=== PATIENT | female | born 1995 | race Caucasian/White ===

== ENCOUNTER 2018-09-01 10:44 | Emergency (ER) | payer SELFPAY ==
[~2018-09-01] VITALS: Ht 152.4 cm; Wt 82.0 kg
[2018-09-01 10:52] VITALS: BP 125/79; PULSE 84; RESP 18; Ht 152.4 cm; Wt 82.0 kg
[2018-09-01] MEDS ORDERED: ACETAMINOPHEN 325 MG TAB PO STA (12:20)
--- NOTE | 2018-09-01 12:53 | ERD ---
ER Documentation Chief Complaint Chief Complaint VAG BLEED , ONSET YESTERDAY HPI This is a 23-year-old female who presents to ED with complaints of vaginal bleeding times 2 days and passed a clot. Last menstrual period 08-30-18. Patient admits to some nausea and lower pelvic discomfort associated with the vaginal bleeding. Admits to history of irregular menses and states that she will often go for multiple months without having a period. Patient is sexually active with a male and is attempting to get . Patient has not taken a test. Denies vomiting, fever, chills, hemoptysis, hematemesis, diarrhea, c onstipation, melena, hematochezia, vaginal pain, vaginal discharge, dysuria, and all the symptoms. ROS All systems reviewed and are negative except as per history of present illness. Allergies Allergies: Coded Allergies: No Known Allergy (Unverified , 11/03/14) PMhx/Soc Hx Alcohol Use: No Hx Substance Use: No Hx Tobacco Use: No Smoking Status: Never smoker FmHx Family History: No diabetes Physical Exam Vitals Vital Signs Date Temp Pulse Resp B/P (MAP) Pulse Ox O2 O2 Flow FiO2 Time Delivery Rate 09/01/18 98.1 84 18 125/79 99 10:52 (94) Physical Exam Physical Exam Vitals signs: Reviewed by me. General: Well developed, well nourished, in no acute distress. Patient is awake and alert. Head: Normocephalic, atraumatic. Eyes: Normal conjunctiva, Pupils PERRLA, EOM intact grossly ENT: Pharynx is clear, Moist mucous membranes, external ears, nose and mouth normal Neck: Supple, no masses, lymphadenopathy or JVD Respiratory: Clear to auscultation bilaterally with no wheezing, rhonchi, rales, no distress Cardiovascular: RRR, no murmurs, rubs, or gallops Abdominal: Soft, nondistended, no peritoneal signs, no rigidity, no surgical abdomen, bowel sounds present all 4 quadrants, nontender light deep palpation all 4 quadrants, McBurney's point nontender, no rebound tenderness, no suprapubic tenderness : Deferred MSK: No edema, no unilateral swelling, 5/5 strength Back: No midline tenderness. No flank tenderness Neurologic: Alert and oriented, moving all extremities, normal speech, no focal weakness, no cerebellar signs. Normal mentation Skin: warm and dry, No rash Psych: Normal mood Result Diagram: 09/01/18 1235 09/01/18 1235 Results 24 hrs Laboratory Tests Test 09/01/18 12:35 09/01/18 12:40 09/01/18 12:50 White Blood Count 7.8 10^3/ul Red Blood Count 5.24 10^6/ul Hemoglobin 12.8 g/dl Hematocrit 40.7 % Mean Corpuscular Volume 77.7 fl Mean Corpuscular Hemoglobin 24.4 pg Mean Corpuscular 31.4 g/dl Hemoglobin Concent Red Cell Distribution Width 13.5 % Platelet Count 471 10^3/UL Mean Platelet Volume 9.7 fl Immature Granulocytes % 0.300 % Neutrophils % 58.9 % Lymphocytes % 34.9 % Monocytes % 4.6 % Eosinophils % 0.9 % Basophils % 0.4 % Nucleated Red Blood Cells % 0.0 /100WBC Immature Granulocytes # 0.020 10^3/ul Neutrophils # 4.6 10^3/ul Lymphocytes # 2.7 10^3/ul Monocytes # 0.4 10^3/ul Eosinophils # 0.1 10^3/ul Basophils # 0.0 10^3/ul Nucleated Red Blood Cells # 0.0 10^3/ul Prothrombin Time 13.0 Sec Prothrombin Time Ratio 1.0 INR International 0.97 Normalized Ratio Activated Partial Thromboplast 34.9 Sec Time Sodium Level 142 mmol/L Potassium Level 4.0 mmol/L Chloride Level 106 mmol/L Carbon Dioxide Level 29 mmol/L Anion Gap 7 Blood Urea Nitrogen 12 mg/dl Creatinine 0.50 mg/dl Est Glomerular Filtrat > 60 mL/min Rate mL/min Glucose Level 107 mg/dl Calcium Level 9.9 mg/dl Total Bilirubin 0.1 mg/dl Direct Bilirubin 0.00 mg/dl Indirect Bilirubin 0.1 mg/dl Aspartate Amino Transf (AST/SGOT) 34 IU/L Alanine 36 IU/L Aminotransferase (ALT/SGPT) Alkaline Phosphatase 82 IU/L Total Protein 8.2 g/dl Albumin 4.5 g/dl Globulin 3.70 g/dl Albumin/Globulin Ratio 1.21 Urine Color YELLOW Urine Clarity CLEAR Urine pH 7.0 Urine Specific [place] 1.027 Urine Ketones NEGATIVE mg/dL Urine Nitrite NEGATIVE mg/dL Urine Bilirubin NEGATIVE mg/dL Urine Urobilinogen NEGATIVE mg/dL Urine Leukocyte Esterase NEGATIVE David/ul Urine Microscopic RBC > 182 /HPF Urine Microscopic WBC 3 /HPF Urine Squamous Epithelial Cells FEW /HPF Urine Hemoglobin 3+ mg/dL Urine Glucose NEGATIVE mg/dL Urine Total Protein NEGATIVE mg/dl POC Beta HCG, Qualitative NEGATIVE Current Medications Medications Dose Sig/Raj Start Time Status Last (Trade) Ordered Route PRN Stop Time Admin Dose Reason Admin 650 mg ONCE STAT 09/01/18 DC 09/01/18 Acetaminophen PO 12:20 09/01/18 12:42 (Tylenol 12:23 Tab) Procedures/MDM EKG, MONITORS, & DIAGNOSTIC IMAGING: [place] [id number] Radiology Main Line: [phone] DIAGNOSTIC IMAGING REPORT Patient: RORY BURKETT : 1995 Age: 23 Sex: F MR #: [id number] DOS: 09/01/18 1220 Ordering MD: ESTRELLA PATEL PA-C Location: [facility] Room/Bed: PROCEDURE: US Pelvis. CLINICAL INDICATION: pelvic pain , vaginal bleeding TECHNIQUE: Multiple sonographic images of the pelvis were obtained utilizing transabdominal technique. The images were reviewed on a PACS workstation. COMPARISON: None. FINDINGS: The uterus is normal in size with a normal appearance of the myometrium. The uterus measures 6.4 x 2.9 x 3.3 cm. The endometrial stripe is homogeneous in appearance and has the thickness of 8 mm. The ovaries are normal in size and echogenicity. Normal Doppler flow is iden tified in both ovaries. The right ovary measures 3.5 x 1.9 x 2.4 cm. The left ovary measures 3.6 x 2.1 x 2.2 cm. No free fluid is present within the pelvis. RPTAT: AA IMPRESSION: Unremarkable pelvic ultrasound. .Everton Acosta MD, Date Time Electronically viewed and signed by .Everton Acosta MD, MD on 09/01/2018 13:51 .S/ CC: ESTRELLA PATEL PA-C [id number] LAB INTERPRETATION: CBC shows no evidence of hemorrhage or infection Chemistry shows no evidence of significant electrolyte abnormalities or renal insufficiency Liver function test shows no evidence of acute biliary or hepatic dysfunction Urine negative Urinalysis remarkable for greater than 182 microscopic RBCs, no leukocyte esterase and no nitrite Blood type AB + ER COURSE: The patient was given tylenol The medication was well tolerated and the patient reports improvement in symptoms. The patient was stable throughout ED course. I kept the patient and/or family informed of laboratory and diagnostic imaging results throughout the emergency room course. The patient was promptly evaluated and a treatment plan was devised based on H&P and other data. This plan was discussed with the patient who agreed and had no further questions or concerns prior to discharge. MEDICAL DECISION MAKING: This is a 23-year-old female presents ED with vaginal bleeding passing clots since 08-30-18. Differential diagnosis includes but is not limited to menses, spontaneous , missed , ectopic , tubo-ovarian abscess, fibroids, UTI, among others. Patient is trying to get . Urine negative. Blood work in the emergency department is also unremarkable. Ultrasound is unremarkable. This is likely patient's menses, dysfunctional uterine bleeding, or menorrhagia. Patient was advised to follow-up with podiatric foot and ankle specialist in net 48 hours. At this time there is no gynecologic/GI/ emergency. No evidence of tubo-ovarian abscess, ectopic , sepsis, hemorrhage, ovarian torsion, appendicitis, small bowel obstruction, perforated viscus, cholecystitis, obstructive pyelonephritis, among others. Vitals are stable patient can be managed close outpatient follow-up. Advised patient follow-up with primary care in the next 48 hours. Return to ED with any worsening symptoms DISPOSITION PLAN: We discussed follow up with the patient's primary care doctor within 24 to 48 hours. Patient counseled regarding my diagnostic impression and care plan. Prior to discharge all questions answered. Pt agrees with treatment plan and understands strict return precautions. Precautionary instructions provided including instructions to return to the ER if not improving or for any worsening or changing symptoms or concerns. SPECIALIST FOLLOW UP RECOMMENDED: obgyn Patient has been advised to follow up with primary care in 1-2 days. Disclaimer: Inadvertent spelling and grammatical errors are likely due to EHR/dictation software use and do not reflect on the overall quality of patient care. Also, please note that the electronic time recorded on this note does not necessarily reflect the actual time of the patient encounter. Departure Diagnosis: Primary Impression: Vaginal bleeding Condition: Stable Patient Instructions: Dysmenorrhea, Hormones Control Your Menstrual Cycle, Menorrhagia, Understanding Periods, Understanding the Normal Menstrual Cycle Referrals: [facility] REFERRAL LIST Additional Instructions: Patient advised to return to the ED immediately for new or worsening symptoms. Patient advised to follow up with primary care provider in the next 24-48 hours. Patient verbalized understanding and agrees with treatment plan and course of action. If patient has no primary care they may follow up with one of the community clinics listed on the following page or one of the options listed below [facility] + [facility] [address] [place] [id number] or [facility] [address] [place] [address] or [facility] [address] [place] [address] ESTRELLA PATEL PA-C Sep 01, 2018 12:52
== END 2018-09-01 13:59 | disposition home or self-care (01) ==
LOC: FTE 10:44
DX: N93.9 Abnormal uterine and vaginal bleeding, unspecified (principal); R10.2 Pelvic and perineal pain
CPT/HCPCS: 36415; 76856; 80053; 81001; 81025; 85025; 85610; 85730; 86900; 86901